=== PATIENT | male | born 1965 | race Caucasian/White ===

== ENCOUNTER → 2020-05-28 14:04 | Outpatient (CLI) | payer OTHER, SELFPAY ==
--- NOTE | ~2020-05-28 | MR_ITS ---
EXAMINATION: MR shoulder LT wo con DATE: 05/28/2020 14:44 INDICATION: Left shoulder pain. TECHNIQUE: Magnetic resonance imaging (MRI) of the left shoulder was performed without intravenous co ntrast. Sequences included axial PD-weighted FS FSE, coronal oblique PD-weighted FS FSE, coronal obli que T2-weighted FS FSE, sagittal PD-weighted FS FSE, and sagittal T1-weighted SE. COMPARISON: None. FINDINGS: Coracoacromial arch: The acromion undersurface is curved in morphology (type II). The coracoacromial ligament is normal. M ild acromioclavicular osteoarthritis. Rotator cuff: Supraspinatus and infraspinatus tendinopathy. Small mild intrasubstance tear measuring 5 mm AP along the middle facet footplate of the infraspinatus tendon which involves approximately one third of the tendon thickness. The teres minor and subscapularis tendons are normal. Normal rotator cuff muscle bu lk and signal. Biceps tendon, glenoid labrum and glenohumeral cartilage: Long head of the biceps tendon is normal. Small medially curving likely subtle labral sulcus at the s uperior glenoid labrum. No definitive labral tear. Glenohumeral cartilage is normal. Fluid: Physiologic amount of fluid in the glenohumeral joint and biceps tendon sheath. No loose osteochondra l bodies. Very small amount of fluid in the subacromial/subdeltoid bursa consistent with minimal burs itis. Bones: Normal marrow signal with no fracture or pathologic marrow replacing process. Minimal cystic change u nderlying the rotator cuff tear at the middle facet of the greater tuberosity. IMPRESSION: 1. Mild supraspinatus and infraspinatus tendinopathy with small mild partial-thickness intrasubstance tear at the middle facet footplate of the infraspinatus tendon. 2. Mild acromioclavicular osteoarthritis with minimal underlying subacromial/subdeltoid bursitis. Reviewed, dictated and finalized at location A. IMPRESSION: 1. Mild supraspinatus and infraspinatus tendinopathy with small mild partial-th ickness intrasubstance tear at the middle facet footplate of the infraspinatus tendon. 2. Mild acromioclavicular osteoarthritis with minimal underlying subacromial/miller bdeltoid bursitis.
== END ==
PROVIDERS: Visit Provider Orthopaedic Surgery
DX: M19.012 Primary osteoarthritis, left shoulder (principal)
CPT/HCPCS: 73221

== ENCOUNTER 2024-08-19 11:33 | Outpatient (CLI) | payer OTHER, SELFPAY ==
--- NOTE | ~2024-08-19 | US_ITS ---
EXAM: Focused ultrasound examination of the soft tissues of the right groin HISTORY: R10.31 - Right lower quadrant pain TECHNIQUE: Sonographic evaluation of the soft tissues of the right groin were performed assessing gra yscale appearance and color Doppler flow. COMPARISON: None. FINDINGS: Within the area of palpable concern is a morphologically benign nonpathologically enlarged lymph node measuring 6 mm in short axis dimension for which no further follow-up is needed. A 15 mm fascial defect was demonstrated with caliber on ultrasound examination, best visualized in th e long axis. However, even with Valsalva, no discrete herniation of intra-abdominal contents was appreciated on ci ne clips. Sonographic evaluation of the remainder of the soft tissues of the right groin demonstrate benign fib rofatty and fibromuscular elements without a cystic or solid lesion of concern. IMPRESSION: Right inguinal fascial defect is demonstrated on the submitted images without herniation of intra-abd ominal contents appreciated. Morphologically benign lymph node within the soft tissues of the right groin corresponding to the are a of palpable concern. Reviewed, dictated and finalized at location A. IMPRESSION: Right inguinal fascial defect is demonstrated on the submitted images without h erniation of intra-abdominal contents appreciated. Morphologically benign lymph node within the soft tissues of the right groin co rresponding to the area of palpable concern.
== END 2024-08-19 11:34 | disposition home or self-care (01) ==
LOC: MICIMG 11:36
PROVIDERS: PCP Surgery; Visit Provider Surgery
DX: R10.31 Right lower quadrant pain (principal)
CPT/HCPCS: 76882

== ENCOUNTER 2024-09-23 00:30 | Day surgery (SDC) | payer OTHER, SELFPAY ==
[2024-09-19 14:52] VITALS: BMI 27.3
--- NOTE | 2024-09-19 15:01 | SUR.PREOP ---
Report to the Outpatient Waiting Room, entrance under the green pavilion located off [facility], at time 7:30a.m. on date 09/23/2024. Planned Procedure Time: 09:30.? Time changes happen often and if your time is changed the preop area will call you the afternoon before. - You and your visitor will be asked to self-screen and do not enter if you have any COVID symptoms. Please call surgeon if you need to reschedule. - A mask is optional within the hospital at this time. Patients may have clear liquids (water, carbonated beverages, clear teas, apple juice) until 3 hours prior to surgery with a maximum of 20 ounces. - No food from midnight until time of surgery and no smoking, or chewing tobacco (or any form of nicotine). No chewing gum, candy or mints. Take only the following medications with a SIP of water on the morning of surgery: N/A DO NOT STOP ANY OF YOUR OTHER PRESCRIPTION MEDICATIONS PRIOR TO SURGERY EXCEPT THE FOLLOWING Hold all vitamins and supplements for 3 days per anesthesiologist. Medications to discontinue per physician N/A Date to take last dose N/A Please no make-up, nail turkmen, hairspray, perfume, deodorant, or body powder the day of surgery.? No jewelry (including any body piercings) or valuables the day of surgery, leave them at home.? Please take a shower or bath the night before, or the morning of, surgery with an antibacterial soap.? Wear comfortable, loose fitting clothing.? Children are encouraged to wear pajamas. - Jewelry must be removed prior to entering the operating room.? Rings and piercings that are not removed may be cut off. - The hospital will not accept responsibility for valuables.? - Please leave all valuables, including medications, at home the day of surgery. If you are going home after surgery, a licensed non emergency services ambulance driver must drive you home.? - NO public transportation without another adult if you receive anesthesia. - We recommend that an adult stay with you for 24 hours following discharge. - We also recommend that you do not drive, make important decision, drink alcoholic beverages, or take any drugs that were not prescribed by your health care provider for at least 24 hours after your discharge time. Follow any additional instructions given to you from your surgeon. Telephone instructions given to Eitan Willis and asked if any additional questions and then verbalized understanding. Patient advised to call surgeon office or pre surgery nurse liaison [phone] if any additional questions.
[2024-09-23] VITALS (10 sets, daily range): BP systolic 126–138; BP diastolic 72–90; PULSE 68–82; RESP 12–18; TEMP 36.3–36.4; O2SAT 95–100; BMI 27.9
--- OUTSIDE RECORDS SUMMARY | 2024-09-23 00:33 | XMS_ITS | Clinical Summary ---
Author Organization Health Plans Angela rodgers [facility] Address [address] [place] [address] Care Team Providers Care Aegis Operations Specialist Name Role Phone Unavailable Primary Care Provider Unavailabl e Social History Tobacco Use Types Packs/Day Years Used Date Smoking Tobacco: Never Assessed Sex and Gender Information Value Date Recorded Sex Assigned at Not on file Legal Sex Male 3:14 PM CDT Gender Identity Not on file Sexual Orientation Not on file Plan of Treatment Health Maintenance Due Date Last Done Comments DTAP/TDAP/TD VACCINES (1 - Tdap) 1984 HEPATITIS B VACCINES (1 of 3 - 19+ 3-dose series) 08/07 COLORECTAL SCREENING 2010 Colorectal Cancer Screening 2010 FIT-DNA Q 3 years 2010 FIT/FOBT Q 1 year 2010 Flex Sig/CT Colonography Q 5 years 2010 ZOSTER VACCINE (1 of 2) 08/25/2015 INFLUENZA VACCINE (#1) 2024
--- OUTSIDE RECORDS SUMMARY | 2024-09-23 00:33 | XMS_ITS | Referral Summary ---
Author Organization [address] Address [address] [address] Care Team Providers Care Automation Application Engineer Name Role Phone Shelbi Ball Primary Care Provider [phone] Allergies No known active allergies Medications fluticasone propionate (FLONASE) 50 mcg/actuation nasal sprayIndication s:Dizziness Administer 2 sprays into each nostril daily 16 g 3 Active Active Problems Problem Noted Date Diagnosed Date Routine adult health maintenance 06/28/2021 Overview (07/18/2022): Health Maintenance: -PCV13 vaccine: N/A -PPSV23 vaccine: N/A -Tdap vaccine: 2015 -Influenza vaccine: due -Shingles vaccine: 07/18/2022 -Cologuard: 2021 -Last PSA: ordered -Last eye exam: N/A -Last MHA: N/A Assessment & Plan (07/04/2021 3:54 PM CDT): Health Maintenance: -PCV13 vaccine: N/A -PPSV23 vaccine: N/A -Tdap vaccine: 2015 -Influenza vaccine: due -Shingles vaccine: due -Cologuard: ordered -Last PSA: ordered -Last eye exam: N/A -Last MHA: N/A Cologuard ordered today. Discussed the Shingrix vaccine. Patient will consider this and return to our office if he would like to get it. PSA ordered. Annual screening labs ordered today. Work on healthy diet and exercise habits. See me annually for routine physicals. Immunizations Immunization Administration Dates Next Due Influenza, Unspecified 12/07/2021(Deferr ed: Patient Refused),12/07/2020(Deferred: Patient Refused),12/08/2019 Pfizer SARS-CoV-2 Monovalent Vaccination (12+ Yrs) PURPLE 02/15/2021 Td, Adsorbed, Preservative F ree, Adult Use, Lf Unspecified 03/09/2019 Td, Unspecified 03/09/2019 Tdap 03/09/2014 ZOSTER Recombinant 07/18/2022 Social History Tobacco Use Types Packs/Day Years Used Date Smoking Tobacco: Never Tobacco Cessation:Counseling Given: Not Answered PHQ-2 Answer Date Recorded PHQ-2 Total Score (If total score is 3 or more points, staff should administer the PHQ-9) 0 07/04/2021 Personal Safety Answer Date Recorded Getting School Help Needed Not on file 03/08 Sex and Gender Information Value Date Recorded Sex Assigned at Not on file Legal Sex Male 9:09 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 Gender Identity Not on file Sexual Orientation Not on file Last Filed Vital Signs Vital Sign Reading Time Taken Comments Blood Pressure 130/80 07/18/2022 8:53 AM CDT Pulse 63 07/18/2022 8:53 AM CDT Temperature 36.6 C (97.9 F) 07/18/2022 8:53 AM CDT Respiratory Rate 16 07/18/2022 8:53 AM CDT Oxygen Saturation 98% 07/18/2022 8:53 AM CDT Inhaled Oxygen Concentration - - Weight 82.1 kg (180 lb 14.4 oz) 07/18/2022 8:53 AM CDT Height 172.7 cm (5' 8) 07/18/2022 8:53 AM CDT Body Mass Index 27.51 07/18/2022 8:53 AM CDT Plan of Treatment Not on file Procedures Procedure Name Priority Date/Time Associated Diagnosis Comments STOOL DNA COLOGUARD Routine 07/29/2021 2:54 PM CDT Screening for colorectal cancer from Last 3 Months or Most Recently Relevant to Health Maintenance Results * Stool DNA - Cologuard (07/29/2021 2:54 PM CDT) Stool DNA - Cologuard Negative Negative [facility] (CLIA #:[id number]) Comment: NEGATIVE TEST RESULT. A negative Cologuard result indicates a low likelihood that a colorectal cancer (CRC) or advanced adenoma (adenomatous polyps with more advanced pre-malignant features) is present. The chance that a person with a negative Cologuard test has a colorectal cancer is less than 1 in 1500 (negative predictive value >99.9%) or has an advanced adenoma is less than 5.3% (negative predictive value 94.7%). These data are based on a prospective cross-sectional study of 10,000 individuals at average risk for colorectal cancer who were screened with both Cologuard and colonoscopy. (Elizabeth Fowler et al, N Engl J Med 2014;370(14):0299-3019) The normal value (reference range) for this assay is negative. COLOGUARD RE-SCREENING RECOMMENDATION: Periodic colorectal cancer screening is an important part of preventive healthcare for asymptomatic individuals at average risk for colorectal cancer. Following a negative Cologuard result, the [place] Cancer Society and U.S. Multi-Society Task Force screening guidelines recommend a Cologuard re-screening interval of 3 years. References: [place] [employer] Guideline for Colorectal Cancer Screening: https://www.cancer.org/cancer/fzmau-fncabt-vtdapu/erraiclnz-bhdbeyqyw-ipopyvm/ac s-rec ommendations.html.; Seth BRISOCE, Marisela PLATT, Nilesh SmithK, Colorectal Cancer Screening: Recommendations for Physicians and Patients from the U.S. Multi-Society Task Force on Colorectal Cancer Screening , Am J Gastroenterology 2017; 112:3531-5242. TEST DESCRIPTION: Composite algorithmic analysis of stool DNA-biomarkers with hemoglobin immunoassay. Quantitative values of individual biomarkers are not reportable and are not associated with individual biomarker result reference ranges. Cologuard is intended for colorectal cancer screening of adults of either sex, 45 years or older, who are at average-risk for colorectal cancer (CRC). Cologuard has been approved for use by the U.S. FDA. The performance of Cologuard was established in a cross sectional study of average-risk adults aged 50-84. Cologuard performance in patients ages 45 to 49 years was estimated by sub-group analysis of near-age groups. Colonoscopies performed for a positive result may find as the most clinically significant lesion: colorectal cancer [4.0%], advanced adenoma (including sessile serrated polyps greater than or equal to 1cm diameter) [20%] or non- advanced adenoma [31%]; or no colorectal neoplasia [45%]. These estimates are derived from a prospective cross-sectional screening study of 10,000 individuals at average risk for colorectal cancer who were screened with both Cologuard and colonoscopy. (Elizabeth Diana al, N Engl J Med 2014;370(14):4569-7462.) Cologuard may produce a false negative or false positive result (no colorectal cancer or precancerous polyp present at colonoscopy follow up). A negative Cologuard test result does not guarantee the absence of CRC or advanced adenoma (pre-cancer). The current Cologuard screening interval is every 3 years. ([place] Cancer Society and U.S. Multi-Society Task Force). Cologuard performance data in a 10,000 patient pivotal study using colonoscopy as the reference method can be accessed at the following location: www.[place].de/results. Additional description of the Cologuard test process, warnings and precautions can be found at www.i2werd.com. Stool 07/29/2021 2:54 PM CDT 07/30/2021 2:33 PM CDT Shelbi [facility] BODY FLUIDS AND STOOL S ORDERABLES Final Result [employer] (CLIA #:[id number]) [address] [address] from Last 3 Months or Most Recently Relevant to Health Maintenance Insurance [employer] [facility] Care Teams Automation Application Engineer Relationship Specialty Start Date End Date Shelbi Ball PA [address] [place], [place] [id number] PCP - General Family Medicine 06/17/21
--- OUTSIDE RECORDS SUMMARY | 2024-09-23 00:33 | XMS_ITS | Clinical Summary ---
Author Organization [facility] Address [address] [place] [address] Care Team Providers Care Parking Technician Name Role Phone Shelbi Ball PA-C Primary Care Provider [phone] Allergies No known active allergies Medications No known medications Active Problems No known active problems Immunizations Immunization Administration Dates Next Due Influenza (Generic) 12/08/2019 PFIZER COVID-19 (ORIGINAL FO RMULATION, PURPLE CAP) mRNA, LNP-S, PF, 30 MCG/0.3 ML DOSE 02/15/2021,06/21/2020,05/29/2020 Td, Adsorbed, Preservative F ree, Adult Use, Lf Unspecified 03/09/2019 Tdap (Generic) 03/09/2014 Family History Medical History Relation Comments Dementia Father Parkinson's Disease Father Heart Attack Maternal Grandfather Hypertension Mother Heart Attack Paternal Grandfather Heart murmur Sister 1 Relation Status Comments Brother Alive Father (Age 83) Maternal Grandfather (Age 75) Mother Alive Paternal Grandfather (Age 62) Sister 1 Alive Sister 2 Alive Social History Tobacco Use Types Packs/Day Years Used Date Smoking Tobacco: Never Smokeless Tobacco: Never Tobacco Cessation:Counseling Given: Not Answered Alcohol Use Standard Drinks/Week Comments Not Currently 0 (1 standard drink = 0.6 oz pur e alcohol) Sex and Gender Information Value Date Recorded Sex Assigned at Not on file Legal Sex Male 3:30 PM CDT Gender Identity Not on file Sexual Orientation Not on file 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 Not on file Not on file Not on f ile Last Filed Vital Signs Vital Sign Reading Time Taken Comments Blood Pressure 144/90 07/15/2022 11:06 AM CDT Pulse 82 07/15/2022 10:50 AM CDT Temperature 37 C (98.6 F) 07/12/2022 3:37 PM CDT Respiratory Rate 18 07/12/2022 6:00 PM CDT Oxygen Saturation 97% 07/15/2022 10:50 AM CDT Inhaled Oxygen Concentration - - Weight 82.1 kg (181 lb) 07/15/2022 10:50 AM CDT Height 172.7 cm (5' 8) 07/15/2022 10:50 AM CDT Body Mass Index 27.52 07/15/2022 10:50 AM CDT Plan of Treatment Health Maintenance Due Date Last Done Comments Colorectal Cancer Screening Colonoscopy (10 Years) 1965 Annual Physical 1968 Hepatitis C 08/25/1983 Hepatitis B Vaccines (1 of 3 - 19+ 3-dose series) 1984 Pneumococcal Vaccine: 50+ Years (1 of 1 - PCV) 08/25/2015 Zoster Vaccines (2 of 2) 09/12/2022 07/18/2022 COVID-19 Vaccine (4 - 2023-2 5 season) 2023 02/15/2021, 06/21/2020, 05/29/2020 DTaP, Tdap and Td Vaccines ( 3 - Td or Tdap) 03/09/2029 03/09/2019, 03/09/2014 Meningococcal B Vaccine Aged Out No l onger eligible based on patient's age to complete this topic Meningococcal Vaccine Aged Out No lazaro jazzmine eligible based on patient's age to complete this topic RSV Immunizations Under 20 Months Aged Out No longer eligible b ased on patient's age to complete this topic Insurance GENERIC - COMMERCIAL Member Subscriber Plan / Payer (Ef fective 2022-Present) Name:Eitan Willis Relation to Subscriber:Self Name:Eitan Willis Payer ID:Not on file Type:Not on file Address: [place] [id number] Care Teams Parking Technician Relationship Specialty Start Date End Date Shelbi Ball PA-C [address] [place] [address] PCP - General PHYSICIAN EXECUTIVE BUSINESS COACH 07/12/22
--- OUTSIDE RECORDS SUMMARY | 2024-09-23 00:33 | XMS_ITS | Clinical Summary ---
Author Organization [address] Address [address] [address] Care Team Providers Care Appian Developer Name Role Phone Shelbi Ball Primary Care Provider [phone] Allergies No known active allergies Medications fluticasone [...] Unspecified 03/09/2019 Tdap 03/09/2014 ZOSTER Recombinant 07/18/2022 Surgical History Surgery Date Site/Laterality Comments LIPOMA RESECTION INGUINAL HERNIA REPAIR Family History Medical History Relation Name Comments No Known Problems Brother No Known Problems Daughter Dementia Father Parkinsonism Father Heart disease Maternal Grandfather Hypertension Mother Parkinsonism Paternal Grandmother Relation Name Status Comments Brother Alive Daughter Alive Father Maternal Grandfather Maternal Grandmother Mother Alive Paternal Grandfather Paternal Grandmother Social History Tobacco Use Types Packs/Day Years [...] on file 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 Gender Identity Not on file Sexual Orientation Not on file Obstetrics History Last Filed Vital Signs Vital Sign Reading [...] 07/18/2022 8:53 AM CDT Plan of Treatment Health Maintenance Due Date Last Done Comments Hepatitis C Screening 1965 Prostate Cancer Screening-PSA 1965 Hepatitis B Screening 08/25/1983 Regular Well Visit/Exam 18-64 07/04/2022 07/04/2021 Zoster Vaccine (2 of 2) 09/12/2022 07/18/2022 Depression Screening 07/19/2023 07/18/2022, 07/04/2021, 07/04/2021 Covid-19 Vaccine (4 - 2023-2 5 season) 2023 02/15/2021, 06/21/2020, 05/29/2020 Colon Cancer Screening-DNA Stool 07/29/2024 07/29/2021 Influenza Vaccine (Season Ended) 2024 12/08/2019 DTaP/Tdap/Td Vaccine (4 - Td or Tdap) 03/09/2029 03/09/2019, 03/09/2019, 03/09/2014 Pneumococcal vaccine <65 Aged Out No longer eligible based on patient's age to complete this topic Procedures Procedure Name Priority Date/Time Associated Diagnosis Comments STOOL DNA COLOGUARD Routine 07/29/2021 2:54 PM CDT Screening for colorectal cancer from Last 3 Months or Most Recently Relevant to Health Maintenance Results * Stool DNA - Cologuard (07/29/2021 2:54 PM CDT) Stool DNA - Cologuard Negative Negative [employer] [facility] [employer] (CLIA #:[id number]) Comment: NEGATIVE TEST RESULT. A negative Cologuard [...] (Elizabeth Diana al, N Engl J Med 2014;370(14):5090-1680) The normal value (reference range) for this assay is negative. COLOGUARD RE-SCREENING RECOMMENDATION: Periodic colorectal cancer screening is an important part of preventive healthcare for asymptomatic individuals at average risk for colorectal cancer. Following a negative Cologuard result, the [place] [employer] Society and U.S. Multi-Society Task Force screening guidelines recommend a Cologuard re-screening interval of 3 years. References: [place] [employer] Guideline for Colorectal Cancer Screening: https://www.cancer.org/cancer/zkswa-dqdfey-txkvfv/niwzfwomt-mzmvwqrzh-uaclitd/ac s-rec ommendations.html.; Seth DK, Marisela PLATT, Nilesh SmithK, Colorectal Cancer Screening: Recommendations for Physicians and Patients from the U.S. Multi-Society Task Force on Colorectal Cancer Screening , Am J Gastroenterology 2017; 112:4193-6028. TEST DESCRIPTION: Composite algorithmic analysis of stool [...] (Elizabeth Diana al, N Engl J Med 2014;370(14):5026-3104.) Cologuard may produce a false negative or false positive result (no colorectal cancer or precancerous polyp present at colonoscopy follow up). A negative Cologuard test result does not guarantee the absence of CRC or advanced adenoma (pre-cancer). The current Cologuard screening interval is every 3 years. ([place] [employer] Society and U.S. Multi-Society Task Force). Cologuard performance data in a 10,000 patient pivotal study using colonoscopy as the reference method can be accessed at the following location: www.Stemnion.[place]/results. Additional description of the Cologuard test process, warnings and precautions can be found at www.cologGOWEXrd.com. Stool 07/29/2021 2:54 PM CDT 07/30/2021 2:33 PM CDT Shelbi [facility] BODY FLUIDS AND STOOL S ORDERABLES Final Result [employer] (CLIA #:[id number]) [address] [place] [address] from Last 3 Months or Most Recently Relevant to Health Maintenance Insurance [employer] [facility] Care Teams Appian Developer Relationship Specialty Start Date End Date Shelbi Ball PA [address] [place] [address] PCP - General Family Medicine 06/17/21
--- NOTE | 2024-09-23 07:23 | WPDHPUPDATE1 ---
History and Physical Update Update Date/Time: 09/23/24 07:23 History and Physical has been reviewed, including an updated exam of the patient. There are NO changes in the patient's condition. Risks, benefits, and alternatives have been discussed and questions answered. Patient agrees to proceed with procedure.
[2024-09-23] MEDS: LACTATED RINGERS 1,000 ML 30 ML IV CONT ×3 (08:10→14:05)
[2024-09-23 08:11] LABS: Hematocrit 43.5 % (42.0-52.0); Hemoglobin 15.1 g/dL (14.0-18.0); Immature Granulocyte Percent A 0.3 % (0-0.5); Lymphocytes Absolute Auto 2.59 K/mm3 (0.9-3.2); Mean Corpuscular HGB Conc 34.7 g/dl (32-36); Mean Corpuscular Hemoglobin 29.7 pg (26-34); Mean Corpuscular Volume 85.5 fl (80-100); Nucleated Red Blood Cells Absolute Auto 0.000 K/mm3 (0.0-0.012); Nucleated Red Blood Cells Perc 0.0 % (0.0-0.2); Platelet Count Result 176 k/mm3 (150-375); Red Blood Count 5.09 M/mm3 (4.6-6.20); White Blood Count 5.8 K/mm3 (4.5-10.0)
--- NOTE | 2024-09-23 08:38 | P.PNAN_ITS ---
Anes - Initial Pre Proc Eval Procedure: Operation Date: 09/23/24 09:30 Proposed Procedures p Robotic Repair Recurrent Right Inguinal Hernia with Mesh - Chapito Hall MD Date/Time: 09/23/24 08:38 Surgeon: Chapito Hall MD Pre Op Diagnosis: recurrent right inguinal hernia Patient Data Age: 59 Gender: M Height: 1.73 m Weight: 83.3 kg Last Vital Signs Temp 36.4 C L 09/23/24 08:00 Pulse 68 09/23/24 08:00 Resp 16 09/23/24 08:00 BP 138/90 09/23/24 08:00 Pulse Ox 98 09/23/24 08:00 Allergies Allergy/AdvReac Type Severity Reaction Status Date / Time menthol Allergy Unknown Hives Verified 09/23/24 08:10 methyl salicylate Allergy Unknown HIVES Verified 09/23/24 08:10 Home Medications ?Medication ?Instructions ?Recorded ?Confirmed ?Type No Home Medications 05/18/20 09/19/24 History Laboratory Tests 09/23/24 07:58 WBC 5.8 K/mm3 (4.5-10.0) RBC 5.09 M/mm3 (4.6-6.20) Hgb 15.1 g/dL (14.0-18.0) Hct 43.5 % (42.0-52.0) MCV 85.5 fl (80-100) MCH 29.7 pg (26-34) MCHC 34.7 g/dl (32-36) RDW 12.8 % (11.5-14.5) Plt Count 176 k/mm3 (150-375) MPV 10.2 fl (7.4-10.4) Immature Gran % (Auto) 0.3 % (0-0.5) Neut % (Auto) 43.3 L % (45.5-73.1) Lymph % (Auto) 44.8 H % (18.3-44.2) Grand % (Auto) 7.4 % (2.6-8.5) Eos % (Auto) 2.8 % (0-4.4) Baso % (Auto) 1.4 H % (0.2-1.2) Lymph # (Auto) 2.59 K/mm3 (0.9-3.2) Grand # (Auto) 0.4 K/mm3 (0.1-0.6) Eos # (Auto) 0.2 K/mm3 (0-0.3) Baso # (Auto) 0.1 K/mm3 (0.0-0.1) Abs Immat Gran (auto) 0.02 K/mm3 (0.00-0.031) Absolute Neuts (auto) 2.5 K/mm3 (1.3-6.7) Absolute Nucleated RBC 0.000 K/mm3 (0.0-0.012) Nucleated RBC % 0.0 % (0.0-0.2) Blood Type Pending Antibody Screen Pending Patient hx anesthesia problems: none Family hx anesthesia problems: none Results Review: All pre-operative results and documents have been reviewed as part of the pre- operative evaluation. [facility] Past Medical History Medical History Obesity Bunionette of left foot Metatarsalgia, left foot Arthritis of shoulder region, left Superior labrum qkhvzdpi-[id number]-xgdoupigb (SLAP) tear of left shoulder Left shoulder pain Surgical History Surgical History History of bilateral inguinal hernia repair 05/29/2017 - repair of bilateral inguinal hernias both with 8cm Parietex hernia mesh system performed by Dr. Hall Family History Family History Mother Family history of thyroid disease Hypertension Family history of elevated blood lipids Sibling Family history of thyroid disease Father Family history of osteoarthritis Family history of Parkinson's disease Family history of dementia Grandparent Family history of cardiovascular disease Family history of Parkinson's disease Carcinoma of colon Other Family history of allergic disorder Social History Social History Smoking status: Never smoker Alcohol intake: never Substance use: never Do You Feel Safe in your Home?: Yes Lack of Transportation: No Lack of Food: Never True Current Housing: I Have Housing Concerned About Future Housing: No Difficulty Paying Gas/Electric Bills: No Difficulty Paying for Meds: No Currently Unemployed: YES Education: Master's Degree or Higher Difficulty w/ Childcare or Family Care: No Anes - Eval Final PreProcedure Day of Procedure 09/23/24 08:38 Patient weight: overweight Heart: regular rate and rhythm Lungs: clear to auscultation Airway: Mallampati scale class II Neurological: alert and oriented Last oral intake: >/= 8 hours ASA classification: I Emergent: no Anesthetic plan: proceed Anesthesia type and monitoring: general ETT and standard monitoring Results Review: All pre-operative results and documents have been reviewed as part of the pre- operative evaluation. Informed Consent: The patient's anesthetic plan and its attendant risks and benefits were discussed with the patient/family/POA. Questions were solicited and answers provided to the satisfaction of the patient/family/POA.
[2024-09-23] MEDS: ACETAMINOPHEN 500 MG TABLET 1000 MG PO (08:42)
[2024-09-23] MEDS: KETOROLAC 15 MG/ML VIAL (*BKC) IV PUSH (08:42)
[2024-09-23] MEDS: ceFAZolin 2 GM in SODIUM CHLORIDE 0.9% IV 50 ML 100 ML IVPB (09:39)
[2024-09-23] MEDS: BUPIVACAINE/EPINEPHRINE 0.5% 50 ML VIAL 30 ML INFILTRATE (10:16)
--- NOTE | 2024-09-23 11:17 | S_PTH ---
PATIENT: Eitan Willis LOC: [facility] U#:[id number] AGE/SX: 59/M ROOM: RE09/23/[address]: Chapito Hall MD : 1965 BED: DIS: 09/23/2024 SPEC #: [id number] RECD: 09/26/24 07:57 STATUS: LEONEL REQ #: [id number] ITZEL: 09/23/24 11:[address]: Chapito Hall DEPT: [facility] Surgical RECD BY: Sulma Martínez ENTERED: 09/26/24 07:57 SP TYPE: Surgical OTHR DR: Shelbi Ball, PA Tissues: A - Mesh Procedures: Gross Exam Level 1
--- NOTE | 2024-09-23 13:09 | W.PM.PROC2 ---
Procedure Note - Detailed Date of Procedure 09/23/24 Pre-op Diagnosis recurrent right inguinal hernia Post-op Diagnosis Same Procedure Performed robotic laparoscopic repair recurrent right inguinal hernia with mesh, laparoscopic excision previous hernia plug Surgeon Chapito Hall MD [employer] [facility] Anesthesia General and Local Indications patient had bilateral open inguinal hernia repairs in 2018. For about the last 12 months he has noticed intermittent right groin pain. It is worse with activity. Exam did not show a definite hernia but dynamic ultrasound showed a hernia defect. He is taken back to surgery at this time for robotic laparoscopic repair of recurrent right inguinal hernia Findings Patient had a recurrent direct right inguinal hernia but also had migration of the parietal tacks the mesh plug so that it was completely intra abdominal but still covered by peritoneum. This mesh plug was heavily scarred and adhesed in place. It was adhesed to small arterial and venous branches of the inferior epigastric vessels. There was much more bleeding than usual due to this as freeing the plug, particularly from these vessels, was not able to be done bloodlessly. We had put in a 4th port as the robotic instruments were insufficient to grasp or cut the mesh of the plug. The assistant front end manager port was placed on the left side of the abdomen and was used to apply some traction to the plug. Dissection and removal of the plug was by far the most difficult aspect of the surgery. It resulted in bleeding making visualization difficult. Adhesions of the peritoneum to the plug caused there to be a large defect in the posterior peritoneal flap. Blood loss was 75 cc which is at least 5 times more than is typical for this surgery. The surgery lasted 2-1/2 hours which is nearly double the usual length of time for this operation. Re peritoneal is a ramirez or closure of the peritoneal incision was much more difficult due to the adhesions of the posterior peritoneum to the plug and a large tear that occurred. Three different pieces of V lock suture were acquired to close the peritoneum. Description of Procedure Patient was taken to surgery and induced into general anesthesia. The abdomen was prepped and draped. The proposed trocar sites were marked on the skin. Local was infiltrated and then trocars were placed in the usual fashion starting with an optical left subcostal trocar and then placing and converting to all robotic trocars. Patient was placed in Trendelenburg. The robotic arm for brought into the field. The camera was docked and targeted. The assistant front end manager arms were docked and instruments positioned appropriately. The surgeon went to the robotic console. A peritoneal flap just anterior to the right inguinal structures was created starting laterally and proceeding medially. A flap was developed broadly. All was going well with flap development when it was noted that a large tear had occurred on the medial aspect of the flap where it had been very adherent to what appeared to be the mesh plug from the previous repair. I then had to complete the flap dissection with both the medial and the lateral piece as well as the junction of the 2. Once this mobilization was adequate, I then dissected medially directly behind the rectus muscle down to Vernon's ligament. I dissected out Vernon's ligament to some degree and then moved to the direct hernia and the intra-abdominal plug. I reduced the direct hernia and was able to see the plug. I began reducing and removing attached, scarred tissue from the plug. This was very difficult. Even though I was using the force bipolar grasper, it was not able to provide adequate traction. A 10 11 left lower abdominal port was then placed by the 1st assistant front end manager but under direct visualization. A grasping forceps through this was used to grasp the plug. This worked much better as it was able to provide continuous traction. The dissection of the plug was quite bloody, as I mentioned above, it was adherent to several blood vessels that were branches off of the inferior epigastric artery and vein. Cautery and bipolar were used to control this bleeding. There was no hemodynamic instability but it was enough bleeding to make visualization more difficult. Eventually, continuing careful dissection and use of the cautery, a plug came completely free. It was extricated through the 10 11 port and sent to pathology for gross only labeled hernia mesh. I then re reviewed the areas of dissection. We suctioned away some of the blood collections. I looked for any additional bleeding. There were couple of areas that were still oozing and these were cauterized and made hemostatic. I then went back to finish the inguinal dissection. Vernon's ligament was exposed as was the pubis. We dissected across the midline couple of cm exposing the medial aspect of the left rectus muscle. We dissected a couple of cm deep to Vernon's ligament and, medially, dissected down to the obturator plug. I then continued dissecting the cord structures free from the peritoneum. No bleeding was associated with this dissection and the peritoneum was able to be safely dissected 5-6 cm posterior to the lower margin of the internal ring. Once the inguinal dissection was completed, an extra-large, 17 x 12 cm, right mid 3DMax mesh was introduced. It was positioned over the inguinal canal structures. It was sutured in place in the usual fashion using 3-0 Vicryl. Three sutures were placed, 1 in Vernon's ligament and 2 in the anterior abdominal wall 1 medial and 1 lateral. All looked good with mesh position and the peritoneal dissection was well posterior to the lower edge of the mesh throughout. I then used 3-0 V lock and started suturing the flap. The medial aspect where the flap packed worn was mobilized and sutured to reform the lower margin of the peritoneal flap. This required 2 of the 3 0 V lock suture. A third 3 0 V lock suture was then used to close the flap from lateral to medial. This covered the entire inguinal dissection and mesh. We removed all the residual needles. We then removed the instruments and undocked the robot. CO2 was evacuated from the abdominal cavity. Skin wounds were closed with subcuticular 4-0 Monocryl skin suture. Wounds were dressed with Exofin surgical adhesive. A scrotal support was placed. The patient was awakened and taken to recovery in good condition. Sponge and needle counts were correct x2. Implants Extra-large, 17 x 12 cm, right mid 3DMax mesh Estimated Blood Loss -75 Drains No Packing No Pathology Yes (Mesh plug, gross only) Complications None Condition Stable Disposition PACU [facility] Billing Surgery - Charge Forward: Surgery Billing (Robotic laparoscopic repair recurrent right inguinal hernia with mesh, laparoscopic removal hernia mesh plug. Add 22 modifier for increased difficulty)
[2024-09-23] MEDS: oxyCODONE HCL (*CRX) 5 MG TAB IR PO (14:35)
== END 2024-09-23 15:32 | disposition home or self-care (01) ==
PROVIDERS: PCP Physician Assistant; Visit Provider Surgery
PROC: 8E0Y4CZ Robotic Assisted Procedure of Lower Extremity, Percutaneous Endoscopic Approach (ICD-10-PCS; CPT 49650; principal; 2024-09-23 09:30)
DX: K40.91 Unilateral inguinal hernia, without obstruction or gangrene, recurrent (principal)
CPT/HCPCS: 49651; S2900; 36415; 85025; 86850; 86900; 86901; 88300; J0690; A9270; C1781; J1100; J1885; J2250; J2405; J2704; J3010; J7030; J7120